=== PATIENT | male | born 1955 | race Hispanic/Latino ===

== ENCOUNTER → 2020-10-31 | Outpatient (CLI) | payer OTHER ==
[~2020-10-31] MED LIST: IOHEXOL-350 50ML VIAL IV ONE
== END | disposition home or self-care (01) ==
LOC: OIH 08:38
PROVIDERS: ATTEND Otolaryngology
DX: K11.5 Sialolithiasis (principal)
CPT/HCPCS: 70492; Q9967

== ENCOUNTER 2020-11-15 06:00 | Day surgery (SDC) | payer OTHER ==
[2020-11-13 12:50] LABS: BASOPHILS % (AUTO) 0.5 % (0.0-5.0); EOSINOPHILS % (AUTO) 3.1 % (0.0-8.0); HEMATOCRIT 41.8 % (42-54); LYMPHOCYTES % (AUTO) 24.1 % (21.0-51.0); MEAN CORPUSCULAR HGB CONC 33.5 g/dL (32.0-36.0); MEAN CORPUSCULAR VOLUME 89.7 fL (79-99); MONOCYTES % (AUTO) 10.7 % (3.0-13.0); NEUTROPHILS % (AUTO) 61.1 % (40.0-77.0); PLATELET COUNT (AUTO) 306 K/uL (130-400); RED BLOOD CELL COUNT(AUTO) 4.66 MIL/uL (4.50-6.20); RED CELL DISTRIBUTION WIDTH 13.6 % (11.0-15.5); WHITE BLOOD COUNT (AUTO) 8.1 K/uL (4.8-10.8)
[2020-11-13 13:03] LABS: INR 0.96 (0.85-1.15); PROTHROMBIN TIME 10.5 SEC (9.6-11.6)
[2020-11-13 13:04] LABS: PARTIAL THROMBOPLASTIN TIME 25.9 SEC (26.3-35.5)
[2020-11-13 13:08] LABS: ALBUMIN 3.6 g/dL (3.5-5.0); BILIRUBIN,TOTAL 0.2 mg/dL (0.2-1.0); CREATININE 1.1 mg/dL (0.5-1.5); POTASSIUM 4.3 mmol/L (3.5-5.1)
[2020-11-14 10:43] VITALS: BP 142/83
[~2020-11-15] VITALS: Ht 177.8 cm; Wt 113.9 kg
[2020-11-15] VITALS (17 sets, daily range): BP systolic 111–139; BP diastolic 66–88
[~2020-11-15 06:00] MED LIST changes: +AMLO-258 PO; +ASPI-1005 PO; +GABA-529 PO; -IOHEXOL-350 50ML VIAL IV ONE; +LISI40TA9 PO; +METH-811 PO; +OMEP40CA21 PO; +SENN-107 PO; +TAMS-1 PO; +TRAM50TA4 PO; +arthritis tylenol PO
[2020-11-15] MEDS ORDERED: CEFAZOLIN SODIUM 1 GM VIAL ONE (06:58)
[2020-11-15] MEDS ORDERED: LACTATED RINGERS 1000ML 1,000 ML IV ONE (06:59)
[2020-11-15] MEDS ORDERED: SUCCINYLCHOLINE CHLORIDE 20 MG/ML 10 ML VIAL ONE (07:28)
[2020-11-15] MEDS ORDERED: LIDOCAINE PF 100MG/5ML (2%) SYRINGE 5ML ONE ×2 (07:28→10:04)
[2020-11-15] MEDS ORDERED: FENTANYL CITRATE PF 50 MCG/1 ML 2ML VIAL ONE ×2 (07:28→09:36)
[2020-11-15] MEDS ORDERED: PROPOFOL 10 MG/ML 20ML VIAL IV ONE (07:28)
[2020-11-15] MEDS ORDERED: LIDOCAINE 1%-EPI 1:100,000 20 ML VIAL IJ SCH (07:45)
== END 2020-11-15 12:30 | disposition home or self-care (01) ==
LOC: DAH 06:00 → EDSTATUS 11:00 → DAH 12:30
PROVIDERS: ATTEND Otolaryngology
DX: K11.23 Chronic sialoadenitis (principal); Z20.822 Contact with and (suspected) exposure to COVID-19; K11.20 Sialoadenitis, unspecified; I10 Essential (primary) hypertension; I45.10 Unspecified right bundle-branch block; I69.354 Hemiplegia and hemiparesis following cerebral infarction affecting left non-dominant side; Z83.3 Family history of diabetes mellitus; Z87.891 Personal history of nicotine dependence; Z82.49 Family history of ischemic heart disease and other diseases of the circulatory system; Z80.9 Family history of malignant neoplasm, unspecified; Z79.899 Other long term (current) drug therapy; Z98.890 Other specified postprocedural states; Z79.01 Long term (current) use of anticoagulants; Z79.82 Long term (current) use of aspirin
CPT/HCPCS: 36415; 42440; 71045; 80053; 85025; 85610; 85730; 87635; 93005; A4215 ×2; A4221; A4222; A4223; A4606; A4649 ×2; A6260; J0330; J0690; J2001 ×2; J2704; J3010 ×2; J3490; J7120 ×2